=== PATIENT | male | born 1985 | race African-American/Black ===

== ENCOUNTER 2016-12-05 18:23 | Emergency (ER) | payer BC, OTHER ==
[2016-12-05] MEDS ORDERED: ACETAMINOPHEN 325 MG TABLET PO STA (18:40)
[2016-12-05] MEDS ORDERED: ACETAMINOPHEN 325 MG TABLET PO ONE (18:53)
[2016-12-05] MEDS ORDERED: IOPAMIDOL-300 100 ML VIAL IVP ONE (19:21)
== END 2016-12-05 20:50 | disposition home or self-care (01) ==
DX: S20.212A Contusion of left front wall of thorax, initial encounter (principal); S30.1XXA Contusion of abdominal wall, initial encounter; V83.7XXA Person on outside of special industrial vehicle injured in nontraffic accident, initial encounter; Y92.89 Other specified places as the place of occurrence of the external cause; Y99.0 Civilian activity done for income or pay; R03.0 Elevated blood-pressure reading, without diagnosis of hypertension
CPT/HCPCS: 71101; 74160; 99283; 99284; A9270; Q9967

== ENCOUNTER 2017-02-22 14:21 | Outpatient (CLI) | payer BC ==
[2017-02-23 13:16] LABS: TEST RESULT REPORT (())
== END 2017-02-22 14:22 | disposition home or self-care (01) ==
LOC: LAB.WCP 14:21
PROVIDERS: ATTEND Family Medicine
DX: Z72.51 High risk heterosexual behavior (principal)
CPT/HCPCS: 36415; 81599; 86592; 86803; 87389; 87491; 87591

== ENCOUNTER 2018-12-02 20:29 | Emergency (ER) | payer OTHER, BC ==
[2018-12-02] MEDS ORDERED: IBUPROFEN 800 MG TABLET PO STA (21:25)
--- NOTE | 2018-12-02 21:31 | ED Physician Documentation ---
PD HPI UPPER EXT INJURY - Stated complaint Stated Complaint: L SHOULDER PX - Chief complaint Chief Complaint: Ext Problem - History obtained from History obtained from: Patient - History of Present Illness Location: Left (He works at a [employer], he was throwing logs yesterday and felt a pop with severe pain across the top of the left shoulder, it also hurts to turn his neck to the right or deviated his head to the right. He has difficulty with abduction. He was seen briefly by a doctor at the [facility] and told that he tore some ligaments and no specific follow-up was recommended.) Review of Systems Constitutional: denies: Fever, Chills Cardiac: reports: Reviewed and negative Respiratory: reports: Reviewed and negative PD PAST MEDICAL HISTORY - Past Surgical History Past Surgical History: No - Present Medications Home Medications: Ambulatory Orders Medication Instructions Recorded Confirmed Ibuprofen [Motrin] 800 mg PO Q8H PRN #30 tablet 12/02/18 - Allergies Allergies/Adverse Reactions: Allergies Allergy/AdvReac Type Severity Reaction Status Date / Time No Known Drug Allergies Allergy Verified 10/29/14 15:11 - Social History Does the pt smoke?: No Smoking Status: Never smoker Does the pt have substance abuse?: No - Immunizations Immunizations are current?: No Immunizations: TDAP >10years/unknown - POLST Patient has POLST: No PD ED PE NORMAL - Vitals Vital signs reviewed: Yes - General General: Alert and oriented X 3, No acute distress - Extremities Extremities: Other (Mild tenderness across the top of the left shoulder without deformity. He can internally and externally rotate without much pain, abduction causes him severe pain only go up to about 30 degrees. He does somewhat better passively with very positive supraspinatus testing.) - Neuro Neuro: Alert and oriented X 3, Normal speech Results - Vitals Vitals: Vital Signs - 24 hr 12/02/18 20:39 Temperature 36.7 C Heart Rate 77 Respiratory 20 Rate Blood Pressure 139/91 H O2 Saturation 98 Oxygen O2 Source Room air PD MEDICAL DECISION MAKING - ED course ED course: This is a 33-year-old gentleman with left shoulder injury, likely an internal derangement possibly rotator cuff tear. I do not think x-rays are likely to be useful tonight, he did want a second opinion and agrees and already has an ap point with an orthopedist next week. Range of motion exercises were discussed and he requested ibuprofen. Departure - Departure Disposition: 01 Home, Self Care Clinical Impression: Shoulder joint derangement Condition: Good Record reviewed to determine appropriate education?: Yes Instructions: ED Torn Rotator Cuff Prescriptions: Ibuprofen [Motrin] 800 mg PO Q8H PRN #30 tablet PRN Reason: PAIN &/OR FEVER Comments: Follow-up with the orthopedist next week as scheduled. Do the range of motion exercises as discussed. Return for new or worsening symptoms. Your blood pressure was elevated today on check into the emergency department. This does not mean that you have hypertension, it is a common phenomenon to come to the emergency department and have elevated blood pressure. I recommend that you see your primary care physician within the week to have it rechecked when you are feeling better.
[2018-12-02 21:38] VITALS: BP 133/91
== END 2018-12-02 21:42 | disposition home or self-care (01) ==
LOC: ED 20:29
DX: S49.92XA Unspecified injury of left shoulder and upper arm, initial encounter (principal); X50.1XXA Overexertion from prolonged static or awkward postures, initial encounter; Y99.0 Civilian activity done for income or pay; R03.0 Elevated blood-pressure reading, without diagnosis of hypertension
CPT/HCPCS: 1040M; 99283; A9270

== ENCOUNTER 2019-05-09 15:15 | Emergency (ER) | payer BC, OTHER ==
[2019-05-09 15:22] VITALS: BP 148/86
--- NOTE | 2019-05-09 15:24 | ED Physician Documentation ---
PD HPI SKIN - Stated complaint Stated Complaint: LUMP ON L BREAST - Chief complaint Chief Complaint: General - History obtained from History obtained from: Patient - History of Present Illness Timing - onset: Today Timing - details: Abrupt onset (He was in the shower and just while washing his chest she noticed a slightly tender lump on the left upper lateral breast area and the pectoral. He was not aware of it prior to this. It is only mildly tender but it was noticeable for him. There is no skin rash or sores. He states he had been having shoulder pain and had received a steroid injection in the left shoulder about 5 days ago. There is no redness nor tenderness at the injection site. He is otherwise feeling well without any fever chills, nausea, sore throat or other infection symptoms.) Location: Chest (Left lateral pectoral area deeper under the skin) Quality / character: Painful (mildly tender locally.). No: Itchy, Discolored, Draining Review of Systems Constitutional: denies: Fever, Chills, Myalgias Skin: denies: Rash, Lesions Endocrine: denies: Weight loss, Weight gain PD PAST MEDICAL HISTORY - Past Medical History Past Medical History: No Musculoskeletal: Other (He has been having pain in the left shoulder and has seen an orthopedist about it.) - Past Surgical History Past Surgical History: No - Present Medications Home Medications: Ambulatory Orders Medication Instructions Recorded Confirmed Ibuprofen [Motrin] 800 mg PO Q8H PRN #30 tablet 12/02/18 - Allergies Allergies/Adverse Reactions: Allergies Allergy/AdvReac Type Severity Reaction Status Date / Time No Known Drug Allergies Allergy Verified 05/09/19 15:21 - Social History Does the pt smoke?: No Smoking Status: Never smoker Does the pt have substance abuse?: No - Immunizations Immunizations are current?: No Immunizations: TDAP >10years/unknown - POLST Patient has POLST: No PD ED PE NORMAL - General General: Alert and oriented X 3, No acute distress, Well developed/nourished - Neck Neck: Supple, no meningeal sign, No adenopathy - Cardiac Cardiac: RRR, No murmur - Respiratory Respiratory: Clear bilaterally, Other (There is a rounded movable approximately 1 cm tender lump deep under the skin in the left pectoral area. It feels above the muscle. There is no redness nor skin lesions noted in the area. The breast tissue and around the nipple appears normal. There is no nipple discharge. The axillary area is without any adenopathy nor skin lesions. Bedside ultrasound showed what I believe was the lesion and it looked to have the demarcation and texture of the lymph node.) - Derm Derm: Normal color, Warm and dry, No rash Results - Vitals Vitals: Vital Signs - 24 hr 05/09/19 15:19 Temperature 36.4 C L Heart Rate 79 Respiratory 19 Rate Blood Pressure 148/86 H O2 Saturation 98 Oxygen O2 Source Room air PD MEDICAL DECISION MAKING - ED course Complexity details: considered differential (There is a rounded movable approxim ately 1 cm tender lump deep under the skin in the left pectoral area. It feels above the muscle. There is no redness nor skin lesions noted in the area. The breast tissue and around the nipple appears normal. There is no nipple discharge. The axillary area is without any adenopathy nor skin lesions. Bedside ultrasound showed what I believe was the lesion and it looked to have the demarcation and texture of the lymph node.), d/w patient Departure - Departure Disposition: 01 Home, Self Care Clinical Impression: Lump in chest, Lymphadenopathy Condition: Stable Record reviewed to determine appropriate education?: Yes Instructions: Lymphadenopathy Comments: I think this feels like a lymph node under the skin. I would suggest some naproxen or ibuprofen 2-3 times daily for the next 5 or 6 days. Recheck if it is not feeling improved during that time. Otherwise recheck if it has increasing size or tenderness to it. It does not look like an infection at this point. Discharge Date/Time: 05/09/19 15:53
== END 2019-05-09 15:53 | disposition home or self-care (01) ==
LOC: ED 15:15
DX: R59.0 Localized enlarged lymph nodes (principal)
CPT/HCPCS: 99281; 99284